=== PATIENT | male | born 1980 | race Caucasian/White ===

== ENCOUNTER 2017-07-30 15:04 | Observation (INO) ==
[2017-07-30] MEDS ORDERED: D5% in 0.45% NACL w KCl 20 MEQ/1,000 ML MLS IVC PRN ×2 (18:06→18:15)
[2017-07-30] MEDS ORDERED: *HR* Dextrose 50 % in Water (Syg) 50 ML SYRINGE IVP PRN ×2 (18:06→21:38)
[2017-07-30] MEDS ORDERED: 0.9 % Sodium Chloride 1,000 ML IVC SCH (18:15)
[2017-07-30] MEDS ORDERED: Insulin Human Regular 100 UNIT in 0.9 % Sodium Chloride 100 ML IVC SCH (18:15)
[2017-07-30] MEDS ORDERED: D5% in 0.45% NACL w KCl 20 MEQ/1,000 ML MLS IVC ONE (18:20)
[2017-07-30] MEDS ORDERED: Naloxone 0.4 MG/ML INJ IVP PRN (18:23)
[2017-07-30] MEDS ORDERED: *HR* HYDROcodone/Acet 5/325 mg TABLET PO PRN (18:23)
[2017-07-30] MEDS ORDERED: Acetaminophen 325 MG TABLET PO PRN (18:23)
--- NOTE | 2017-07-30 18:23 | Internal Med History&Physical ---
Date of Encounter: 07/30/17 Time of Encounter: 18:39 Assessment and Plan (1) DKA (diabetic ketoacidoses) Current visit: Yes Status: Acute DKA protocol FS q1h Chem q4h Check lactate and stat labs REason for DKA at this time possibly due to insulin pump malfunction NPO for now Qualifiers: Diabetes mellitus type: type 1 Diabetes mellitus complication detail: without coma Qualified Code(s): E10.10 - Type 1 diabetes mellitus with ketoacidosis without coma (2) Acute renal insufficiency Current visit: Yes Status: Acute continue IVF Follow repeat chem avoid nephrotoxins Internal Medicine - H&P: HPI Chief complaint: DKA Admitted From: Home Plans for Post Hospital Care: Home History of present illness: Mr. Llanos is a 36 year old male , type I Dm, diagnosed 10 years ago He was transferred to [facility] for management fo DKA from [place] in-patient, he had been started on insulin drip there bu gap was still open at time of transfer At my time of review, we are awaiting STAT labs to asses his chem PH at referral hospital was 7.26, CBC with leukocytosis, chem with LINUS, Cr 2.09 , baseline is 0.8 Patient reports he thinks he might have been having problems with his insulin pump and developed abdominal pain associated with vomiting prior to presentation to [place] 07/29. He has no fever or chills, but reports sore throat possibly from the recurrent vomiting. HE denies chest pain, cough shortness of breath, urinary symptoms NO neurologic symptoms Past Med Surg Social Fam HX - Past Medical History Medical history: diabetes, hyperlipidemia, hypertension Psychiatric history: no psych history - Past Surgical History Surgical History: no surgical history - Social History Smoking Status: Never smoker Smokeless Tobacco Status: Yes Alcohol use: none Drug use: none Internal Medicine - H&P: Meds Esomeprazole Magnesium [Nexium] 20 mg PO DAILY 03/27/15 [History] Losartan [Cozaar] 50 mg PO DAILY 03/27/15 [History] Lovastatin [Mevacor] 10 mg PO HS 03/27/15 [History] Insulin ASPART [Novolog] 0 unit SQ DAILY 10/05/15 [History] 3 Allergy/AdvReac Type Severity Reaction Status Date / Time No Known Allergies Allergy Verified 02/21/17 09:38 All Systems PM: A 10-system review of systems was performed and is negative for pertinent findings except as documented above in the HPI. - Constitutional Constitutional: as per HPI - EENT Eyes: as per HPI Ears: as per HPI Nose, mouth and throat: as per HPI - Cardiovascular Cardiovascular ROS IM: as per HPI - Respiratory Respiratory: as per HPI - Gastrointestinal Gastrointestinal: as per HPI - Musculoskeletal Musculoskeletal ROS IM: as per HPI - Integumentary Integumentary IM: as per HPI - Neurological Neurological ROS: as per HPI - Hematologic/Lymphatic Hematologic/Lymphatic: as per HPI - Head Head exam: Present: atraumatic - Eye Eye exam: Present: EOMI, PERRL - ENT ENT exam: Present: mucous membranes dry - Neck Neck exam general surgery: Present: normal inspection. Absent: lymphadenopathy Additional comments: Throat exam: Hyperemia without exudates - Respiratory Respiratory exam: Present: CTAB - Cardiovascular Cardiovascular exam: Present: RRR, +S1, +S2. Absent: diastolic murmur, gallop, rubs, systolic murmur - GI/Abdominal GI/Abdominal exam: Present: normal bowel sounds, soft, no peritoneal signs. Absent: distended, tenderness - Extremities Exam Extremities exam: Present: warm, radial pulses palpable and symmetrical. Absent : calf tenderness, cyanotic, pedal edema - Neurological Exam Neurological exam: Present: alert, CN II-XII intact, oriented X3, no focal deficits. Absent: pronater drift, facial droop, speech deficit - Skin Skin exam: Present: dry, intact
[2017-07-30] MEDS ORDERED: Menthol 9.1 MG LOZENGE PO PRN (18:52)
[2017-07-30 20:20] LABS: VBG HCO3 27 mEq/L (21-27); VBG PCO2 54 mmHg (41-51); VBG PH 7.31 pH Units (7.32-7.42); VBG PO2 41 mmHg (25-50)
[2017-07-30 20:38] LABS: BUN/Creatinine Ratio 22 (6-26); Blood Urea Nitrogen 25 mg/dL (6-20); Calcium 8.1 mg/dL (8.6-10.3); Carbon Dioxide 25 mEq/L (23-29); Chloride 103 mEq/L (98-107); Glucose 199 mg/dL (70-105); Osmolality,Calculated 290 (280-300); Potassium 4.1 mEq/L (3.5-5.1); Sodium 135 mEq/L (136-145); eGFR For Non-African Americans > 60 (> 60)
[2017-07-30] MEDS ORDERED: Insulin DETEMIR 100 UNIT/ML X5UNITS SQ ONE (21:35)
[2017-07-30] MEDS ORDERED: Dextrose Gel 15 GM/37.5 ML TUBE PO PRN ×2 (21:38)
[2017-07-30] MEDS ORDERED: D5% in Water 1,000 ML IVC PRN (21:38)
[2017-07-30] MEDS: *HR* Heparin 5,000 UNIT/ML VIAL SQ SCH (22:07)
[2017-07-31] MEDS: Insulin LISPRO 300 UNITS/3 ML VIAL SQ SCH ×4 (00:07→12:22)
[2017-07-31 01:16] LABS: Basophils % 0.1 %; Eosinophils % 0.1 %; Hematocrit 34.5 % (37.5-50.1); Hemoglobin 11.4 g/dL (12.9-16.9); Immature Granulocytes % 0.3 % (0-4); Lymphocytes # 0.9 K/mcL (0.6-4.6); Lymphocytes % 9.9 %; Mean Corpuscular Hemoglobin 30.7 pg (28.0-33.3); Mean Platelet Volume 9.4 fL (9.4-12.4); Monocytes # 0.6 K/mcL (0.0-1.3); Monocytes % 6.3 %; Neutrophils # 7.4 K/mcL (1.6-8.9); Platelet Count 110 K/mcL (140-400); Red Blood Count 3.71 M/mcL (4.19-5.50); Red Cell Distribution Width 13.5 % (11.5-14.5); Segmented Neutrophils % 83.3 %
[2017-07-31 01:35] LABS: Chol/HDL Ratio 2.6 (0-4.9)
[2017-07-31 01:36] LABS: BUN/Creatinine Ratio 20 (6-26); Blood Urea Nitrogen 19 mg/dL (6-20); Calcium 8.3 mg/dL (8.6-10.3); Carbon Dioxide 22 mEq/L (23-29); Chloride 103 mEq/L (98-107); Glucose 187 mg/dL (70-105); Osmolality,Calculated 289 (280-300); Potassium 3.7 mEq/L (3.5-5.1); Sodium 136 mEq/L (136-145); eGFR For Non-African Americans > 60 (> 60)
[2017-07-31] MEDS: *HR* Heparin 5,000 UNIT/ML VIAL SQ SCH (06:07)
[2017-07-31 06:44] LABS: BUN/Creatinine Ratio 19 (6-26); Blood Urea Nitrogen 16 mg/dL (6-20); Calcium 8.5 mg/dL (8.6-10.3); Carbon Dioxide 23 mEq/L (23-29); Chloride 103 mEq/L (98-107); Glucose 147 mg/dL (70-105); Osmolality,Calculated 288 (280-300); Potassium 3.9 mEq/L (3.5-5.1); Sodium 137 mEq/L (136-145); eGFR For Non-African Americans > 60 (> 60)
[2017-07-31] MEDS ORDERED: Pantoprazole 40 MG VIAL IVP SCH (09:00)
[2017-07-31 11:21] VITALS: BP 133/92
--- NOTE | 2017-07-31 11:35 | Discharge Summary ---
Addendum entered and electronically signed by Faviola Fine DO 07/31/17 13:39 : Correction: Long acting insulinis Degludec instead of Levemir Addition to the hospital course: Patient was set up with an endocrinology appointment on Thursday. Original Note: <Faviola Fine - Last Filed: 07/31/17 12:57> - NOTES TO OUTPATIENT PROVIDER Notes to Outpatient Provider: Patient's pump has not been working therefore we recommended using subcutaneous insulin. With the Levemir dose of 8 units and a medium sliding scale for Humalog. Orders not resulted at time of discharge: Pending orders 07/30/17 20:07 Hgb A1C Stat Date of Encounter: 07/31/17 Time of Encounter: 12:20 - Discharge Diagnosis (1) DKA, type 1 Priority: Primary Status: Acute Qualifiers: Diabetes mellitus complication detail: without coma Qualified Code(s): E10.10 - Type 1 diabetes mellitus with ketoacidosis without coma (2) Acute renal insufficiency Priority: Secondary Status: Acute Hospital course: Mr. Llanos is a 36 year old male with a past medical history of type 1 diabetes and is on an insulin pump presented to the ED in DKA. Patient's pH was found to be 7.31. Patient was placed on insulin drip and was weaned off. By morning patient was without nausea, vomiting, abdominal pain, shortness of breath. Electrolytes were within normal limits. Patient was stable with low glucoses in a reasonable range and instructed to use subcutaneous insulin instead of pump until new pump is obtain as he reports incidents of pump turning off and he is not sure if he always notices. Patient did not have any other obviously cause of DKA as investigation of infection, alcohol use, or heart attack. Patient was instructed to use levemir 8 units and a sliding scale for humalog. Patient was instructed to f/u with his PCP who manages his insulin on Thursday (3 days from now). - Time Spent with Patient Total time spent providing and/or coordinating discharge services: - Discharge Medications Prescriptions: Insulin Degludec [Tresiba Flextouch U-100] 8 unit SQ HS #7 insuln.pen Insulin LISPRO [HumaLOG] See Protocol SQ TIDWM #7 vial Lancets/Blood Glucose Strips [Fora [id number] Strp-Lnct] 1 each [facility] #3 combo..pkg [place], Insulin Disp., Safety [Healthy Accents Unifine Pentip] 1 each QID # 90 dis.needle Home Medications: Esomeprazole Magnesium [Nexium] 20 mg PO DAILY 03/27/15 [History] Losartan [Cozaar] 50 mg PO DAILY 03/27/15 [History] Insulin Degludec [Tresiba Flextouch U-100] 8 unit SQ HS #7 insuln.pen 07/31/17 [ Rx] Insulin LISPRO [HumaLOG] See Protocol SQ TIDWM #7 vial 07/31/17 [Rx] Lancets/Blood Glucose Strips [Fora [id number] Strp-Lnct] 1 each [facility] #3 combo..pkg 07/31/17 [Rx] Lovastatin [Mevacor] 20 mg PO HS 07/31/17 [History] [place], Insulin Disp., Safety [Healthy Accents Unifine Pentip] 1 each QID # 90 dis.needle 07/31/17 [Rx] Subcutaneous Insulin Pump [T:Slim] 0 units SQ DAILY 07/31/17 [History] Allergies/Adverse Reactions: 3 Allergy/AdvReac Type Severity Reaction Status Date / Time No Known Allergies Allergy Verified 02/21/17 09:38 Date of admission: 07/30/17 18:01 Primary care physician: Jame Amezquita MD - Constitutional Vitals: Temp Pulse Resp BP Pulse Ox 97.9 F 93 16 133/92 97 07/31/17 10:45 07/31/17 10:45 07/31/17 10:45 07/31/17 10:45 07/31/17 07:33 Exam: Constitutional: Alert, in no acute distress, well nourished, well developed. Head: Normocephalic, atraumatic Heart: Normal, regular rate and rhythm, no murmurs Lungs: Clear to auscultation, no wheezes, rales, or rhonchi Abdomen: Soft, nondistended, nontender, and no masses palpable, bowel sounds present and normal, no guarding or rigidity. Extremities: No clubbing, cyanosis, or edema, radial pulse +2/4, capillary refill <2sec. Skin: Skin warm and dry, no lesions, no rashes, no jaundice Neurologic: Cranial nerves II through XII grossly intact, no focal deficits, strength within normal limits in all extremities Psych: Cooperative with exam, good eye contact, cognitive function intact, judgment good insight good, speech clear, thought process logical, and goal directed - Patient Status Disposition: Home, Self-Care Condition: Good Functional capacity at discharge: independent ambulation Overall status at discharge: patient is progressing back to baseline - Discharge Instructions Follow Up With: Jame Amezquita MD [Primary Care Provider] - 08/06/17 11:30 am () Michaela Brian CNP [Advanced Practice Nurse] - 08/04/17 8:00 am Additional Instructions: Since pump has not been working, please use the insulin injections. Use levemir 8 units at night and a sliding scale for Humalog after eating. Sliding scale: if blood sugar is... between 141-180 use 4 units of humalog between 181-220 use 6 units of humalog between 221-260 use 8 units of Humalog Between 261-300 use 10 units of Humalog Between 301-350 use 12 units of Humalog Between 351-400 use 14 units of Humalog Greater than 400 use 16 units of humalog -Follow-up with your primary care physician on Thursday. - Diet and Activity Activity: increase activity as tolerated Diet: diabetic diet <Esther Meyer - Last Filed: 07/31/17 13:56> Orders not resulted at time of discharge: Pending orders 07/30/17 20:07 Hgb A1C Stat Date of Encounter: 07/31/17 Hospital course: Mr. Llanos is a 36 year old male - Time Spent with Patient Total time spent providing and/or coordinating discharge services: Date of admission: 07/30/17 18:01 Primary care physician: Jame Amezquita MD - Constitutional Vitals: Temp Pulse Resp BP Pulse Ox 97.9 F 93 16 133/92 97 07/31/17 10:45 07/31/17 10:45 07/31/17 10:45 07/31/17 10:45 07/31/17 07:33 - Attending Attestation I examined this patient and my medical decision-making was reviewed with the Resident Physician. I agree with the documented discharge summary, disposition and treatment plan as described except to the extent set forth below.
[2017-07-31 13:19] LABS: Hemoglobin A1C 8.5 %
== END 2017-07-31 14:57 | disposition home or self-care (01) ==
LOC: 2NNU
PROVIDERS: ADMIT Internal Medicine; ATTEND Internal Medicine